=== PATIENT | male | born 1975 | race Caucasian/White ===

== ENCOUNTER 2022-11-13 03:23 | Emergency (ER) | payer SELFPAY ==
[2022-11-13] MEDS ORDERED: Ketorolac Tromethamine 30 MG/ML VIAL ONE (04:01)
== END 2022-11-13 04:06 | disposition home or self-care (01) ==
LOC: ERS 03:23
DX: K04.7 Periapical abscess without sinus (principal)
CPT/HCPCS: 96372; 99283; J1885